=== PATIENT | male | born 1990 | race African-American/Black ===

== ENCOUNTER 2025-03-04 02:49 | Emergency (ER) | payer MEDICAID ==
[~2025-03-04] VITALS: Ht 185.4 cm; Wt 141.0 kg
[2025-03-04 02:53] VITALS: O2SAT 99
[2025-03-04] MEDS: LIDOCAINE 5% PATCH TOP SCH (04:38)
[2025-03-04] MEDS: CYCLOBENZAPRINE 10MG TABLET PO ONE (04:38)
[2025-03-04] MEDS: KETOROLAC 15MG/ML VIAL IM ONE (04:39)
[2025-03-04] MEDS ORDERED: CYCL5TAB3 MT (05:23)
[2025-03-04] MEDS ORDERED: LIDO-53 TP (05:23)
[2025-03-04] MEDS ORDERED: NAPR-1176 MT (05:23)
[2025-03-04 05:45] VITALS: BP 122/75; PULSE 63; RESP 13; TEMP 36.8; O2SAT 100
== END 2025-03-04 05:45 | disposition home or self-care (01) ==
LOC: ER 03:11
DX: M54.9 Dorsalgia, unspecified (principal); M62.838 Other muscle spasm; J45.909 Unspecified asthma, uncomplicated; Z79.1 Long term (current) use of non-steroidal anti-inflammatories (NSAID); Z91.013 Allergy to seafood
CPT/HCPCS: 99283; 96372; J1885